=== PATIENT | male | born 1955 | race Caucasian/White ===

== ENCOUNTER 2018-02-14 09:08 | Emergency (ER) | payer BC, OTHER ==
[2018-02-14 09:13] VITALS: BP 119/87
[2018-02-14] MEDS ORDERED: Sodium Chloride 0.9% 5 ML Syringe FLUSH PRN (09:21)
--- NOTE | 2018-02-14 09:32 | EDM.PDOC ---
ED HPI GENERAL MEDICAL PROBLEM - General Chief Complaint: Abdominal Pain Stated Complaint: ABD PAIN Time Seen by Provider: 02/14/18 09:15 Source of Information: Reports: Patient History Limitations: Reports: No Limitations - History of Present Illness INITIAL COMMENTS - FREE TEXT/NARRATIVE: 62 YO WM presents to ER complaining of lower abdominal pain x 2 days. Pt reports he had eaten multiple ears of corn on the cob 3 days ago and woke yesterday with lower abdominal pain and cramping with associated diarrhea. As the day progressed pt reports he began to feel a little better and the loose stool decreased. Pt has had no appetite. Pt reports this am he woke with severe pain again. Pt reports pain is relieved with urination. Pt denies any dysuria, frequency, urgency or urethral discharge. Pt with PMH of CAD/PTCA with stent x 2 and appendectomy. 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 Lower Abdomen Pain Score (Numeric/FACES): 8 - Related Data Allergies Allergy/AdvReac Type Severity Reaction Status Date / Time No Known Drug Allergies Allergy Other Verified 02/14/18 09:13 Home Meds: Home Meds Aspirin [Abie Aspirin] 81 mg PO DAILY 12/29/14 [History] atorvaSTATin [Lipitor] 80 mg PO DAILY 12/29/14 [History] Clopidogrel Bisulfate [Clopidogrel] 75 mg PO DAILY 11/20/16 [History] Losartan [Cozaar] 25 mg PO DAILY 11/20/16 [History] Metoprolol Tartrate 50 mg PO DAILY 11/20/16 [History] Ciprofloxacin HCl [Cipro] 500 mg PO BID #20 tablet 02/14/18 [Rx] Ondansetron [Zofran ODT] 4 mg PO Q6H PRN #15 tab.dis 02/14/18 [Rx] metroNIDAZOLE [Flagyl] 500 mg PO Q6HR #40 tablet 02/14/18 [Rx] traMADol HCl [Ultram] 50 mg PO Q6HR PRN #15 tablet 02/14/18 [Rx] Past Medical History Cardiovascular History: Reports: [place] - Past Surgical History Other Cardiovascular Surgeries/Procedures: angiogram Social & Family History - Living Situation & Occupation Occupation: Employed ED ROS GENERAL - Review of Systems Review Of Systems: See Below Constitutional: Reports: No Symptoms HEENT: Reports: No Symptoms Respiratory: Reports: No Symptoms Cardiovascular: Reports: No Symptoms Endocrine: Reports: No Symptoms GI/Abdominal: Reports: Abdominal Pain, Diarrhea, Decreased Appetite, Distension , Nausea. Denies: Black Stool, Bloody Stool, Hematemesis, Hematochezia, Melena , Vomiting : Reports: No Symptoms Musculoskeletal: Reports: No Symptoms Skin: Reports: No Symptoms Neurological: Reports: No Symptoms Psychiatric: Reports: No Symptoms Hematologic/Lymphatic: Reports: No Symptoms Immunologic: Reports: No Symptoms ED EXAM, GI/ABD - Physical Exam Exam: See Below Exam Limited By: No Limitations General Appearance: Alert, WD/WN, No Apparent Distress Head: Atraumatic, Normocephalic Neck: Normal Inspection, Supple, Non-Tender, Full Range of Motion Respiratory/Chest: No Respiratory Distress, Lungs Clear, Normal Breath Sounds, No Accessory Muscle Use, Chest Non-Tender Cardiovascular: Normal Peripheral Pulses, Regular Rate, Rhythm, No Edema, No Gallop, No JVD, No Murmur, No Rub GI/Abdominal Exam: Normal Bowel Sounds, Soft, No Organomegaly, No Distention, No Abnormal Bruit, No Mass, Pelvis Stable, Tender (suprapubic/RLQ) Back Exam: Normal Inspection, Full Range of Motion, NT Extremities: Normal Inspection, Normal Range of Motion, Non-Tender, Normal Capillary Refill, No Pedal Edema Neurological: Alert, Oriented, CN II-XII Intact, Normal Cognition, Normal Gait, Normal Reflexes, No Motor/Sensory Deficits Psychiatric: Normal Affect, Normal Mood Skin Exam: Warm, Dry, Intact, Normal Color, No Rash Lymphatic: No Adenopathy Course - Vital Signs Last Recorded V/S: Last Vital Signs Temp 36.8 C 02/14/18 09:09 Pulse 88 02/14/18 09:09 Resp 20 02/14/18 09:09 BP 119/87 02/14/18 09:09 Pulse Ox 98 02/14/18 09:09 - Orders/Labs/Meds Orders: Active Orders 24 hr Category Date Time Status Peripheral IV Care [RC] . DIRECTED Care 02/14/18 09:22 Active Abdomen Pelvis w Cont [CT] Stat Exams 02/14/18 09:32 Taken UA W/MICROSCOPIC [URIN] Stat Lab 02/14/18 09:21 Ordered Ciprofloxacin in D5W [Cipro in D5W 400 MG/200 ML] 400 Med 02/14/18 11:15 Ordered mg Premix Bag 1 bag IV ONETIME HYDROmorphone [Dilaudid] Med 02/14/18 11:15 Once 1 mg IVPUSH ONETIME ONE Ondansetron [Zofran] Med 02/14/18 11:15 Once 4 mg IVPUSH ONETIME ONE Sodium Chloride 0.9% [Normal Saline] Med 02/14/18 10:30 Active 50 ml FLUSH ASDIRECTED Sodium Chloride 0.9% [Syrex Flush] Med 02/14/18 09:21 Active 5 ml FLUSH Q8HR PRN metroNIDAZOLE/Normal Saline [Flagyl 500 MG in NS 100 ML Med 02/14/18 11:15 Ordered ] 500 mg Premix Bag 1 bag IV ONETIME Peripheral IV Insertion Adult [OM.PC] Routine Oth 02/14/18 09:21 Ordered Medication Orders Sodium Chloride (Syrex Flush) 5 ml FLUSH Q8HR PRN PRN Reason: Keep Vein Open Sodium Chloride (Normal Saline) 50 ml FLUSH ASDIRECTED FAVIAN Last Admin: 02/14/18 10:56 Dose: 50 ml Labs: Laboratory Tests 02/14/18 02/14/18 02/14/18 Range/Units 09:21 09:21 09:50 WBC 7.0 (5.0-10.0) 10^3/uL RBC 5.10 (4.50-6.00) 10^6/uL Hgb 15.2 (13.0-17.0) g/dL Hct 44.1 (40.0-52.0) % MCV 86.5 (82.0-92.0) fL MCH 29.8 (27.0-31.0) pg MCHC 34.5 (32.0-36.0) g/dL RDW 13.4 (11.5-14.5) % Plt Count 168 (150-400) 10^3/uL MPV 9.5 (7.4-10.4) fL Immature Gran % (Auto) 0.1 (0.0-5.0) % Neut % (Auto) 72.7 H (50.0-70.0) % Lymph % (Auto) 14.6 L (20.0-40.0) % [place] % (Auto) 10.0 H (2.0-8.0) % Eos % (Auto) 1.9 (1.0-3.0) % Baso % (Auto) 0.7 (0.0-1.0) % Immature Gran # (Auto) 0.01 (0.00-0.50) 10^3/uL Neut # (Auto) 5.10 (2.50-7.00) 10^3/uL Lymph # (Auto) 1.02 (1.00-4.00) 10^3/uL [place] # (Auto) 0.70 (0.10-0.80) 10^3/uL Eos # (Auto) 0.13 (0.10-0.30) 10^3/uL Baso # (Auto) 0.05 (0.00-0.10) 10^3/uL Sodium 138 (136-145) mmol/L Potassium 4.3 (3.3-5.3) mmol/L Chloride 102 (98-115) mmol/L Carbon Dioxide 27.6 (21.0-32.0) mmol/L Anion Gap 12.7 (5-15) mmol/L BUN 10 (6-25) mg/dL Creatinine 0.99 (0.51-1.17) mg/dL Est Cr Clr Drug Dosing 76.77 mL/min Estimated GFR (MDRD) > 60 mL/min Glucose 100 mg/dL Calcium 9.0 (8.7-10.3) mg/dL Total Bilirubin 1.5 H (0.2-1.0) mg/dL AST 16 (15-37) U/L ALT 29 (12-78) U/L Alkaline Phosphatase 141 H (46-116) IU/L Total Protein 6.5 (6.4-8.2) g/dL Albumin 3.55 (3.00-4.80) g/dL Lipase 113 (73-393) U/L Specimen Type Urinvoid Urine Color Yellow (YELLOW) Urine Appearance Clear (CLEAR) Urine pH 5.0 (5.0-9.0) Ur Specific [place] 1.020 (1.005-1.030) Urine Protein 100 H (NEGATIVE) mg/dL Urine Glucose (UA) Negative (NEGATIVE) mg/dL Urine Ketones Negative (NEGATIVE) mg/dL Urine Occult Blood Negative (NEGATIVE) Urine Nitrite Negative (NEGATIVE) Urine Bilirubin Negative (NEGATIVE) Urine Urobilinogen 0.2 (0.2-1.0) E.U./dL Ur Leukocyte Esterase Negative (NEGATIVE) Urine RBC Not seen /HPF Urine WBC 0-5 /HPF Ur Epithelial Cells Rare /LPF Urine Bacteria Rare (NONE TO FEW) /HPF Urine Mucus Occasional H (NEGATIVE) /LPF Meds: Medications Generic Name Dose Route Start Last Admin Trade Name Freq PRN Reason Stop Dose Admin Sodium Chloride 5 ml 02/14/18 09:21 Syrex Flush FLUSH Q8HR PRN Keep Vein Open Sodium Chloride 50 ml 02/14/18 10:30 02/14/18 10:56 Normal Saline FLUSH 50 ml ASDIRECTED FAVIAN Administration Discontinued Medications Generic Name Dose Route Start Last Admin Trade Name Freq PRN Reason Stop Dose Admin Sodium Chloride 1,000 mls @ 999 mls/hr 02/14/18 09:32 02/14/18 09:50 Normal Saline IV 02/14/18 10:32 999 mls/hr .BOLUS ONE Administration Iopamidol 100 ml 02/14/18 10:26 02/14/18 10:56 Isovue-300 (61%) IVPUSH 02/14/18 10:27 100 ml ONETIME ONE Administration Ondansetron HCl 4 mg 02/14/18 09:21 02/14/18 09:50 Zofran IVPUSH 02/14/18 09:22 4 mg ONETIME ONE Administration - Radiology Interpretation Free Text/Narrative:: CT abd/pelvis- sigmoid diverticulitis without abscess Departure - Departure Time of Disposition: 11:22 Disposition: Home, Self-Care 01 Condition: Good Clinical Impression: Diverticulitis large intestine w/o perforation or abscess w/o bleeding - Discharge Information Prescriptions: metroNIDAZOLE [Flagyl] 500 mg PO Q6HR #40 tablet traMADol HCl [Ultram] 50 mg PO Q6HR PRN #15 tablet PRN Reason: Pain Ciprofloxacin HCl [Cipro] 500 mg PO BID #20 tablet Ondansetron [Zofran ODT] 4 mg PO Q6H PRN #15 tab.dis PRN Reason: Vomiting Instructions: Diverticulitis Referrals: Laurita Phan PA-C [Primary Care Provider] - Forms: ED Department Discharge - My Orders Last 24 Hours: My Active Orders 02/14/18 09:21 UA W/MICROSCOPIC [URIN] Stat Sodium Chloride 0.9% [Syrex Flush] 5 ml FLUSH Q8HR PRN Peripheral IV Insertion Adult [OM.PC] Routine 02/14/18 09:22 Peripheral IV Care [RC] . DIRECTED 02/14/18 09:32 Abdomen Pelvis w Cont [CT] Stat 02/14/18 10:30 Sodium Chloride 0.9% [Normal Saline] 50 ml FLUSH ASDIRECTED 02/14/18 11:15 Ciprofloxacin in D5W [Cipro in D5W 400 MG/200 ML] 400 mg Premix Bag 1 bag IV ONETIME HYDROmorphone [Dilaudid] 1 mg IVPUSH ONETIME ONE Ondansetron [Zofran] 4 mg IVPUSH ONETIME ONE metroNIDAZOLE/Normal Saline [Flagyl 500 MG in NS 100 ML] 500 mg Premix Bag 1 bag IV ONETIME - Assessment/Plan Last 24 Hours: My Active Orders 02/14/18 09:21 UA W/MICROSCOPIC [URIN] Stat Sodium Chloride 0.9% [Syrex Flush] 5 ml FLUSH Q8HR PRN Peripheral IV Insertion Adult [OM.PC] Routine 02/14/18 09:22 Peripheral IV Care [] . DIRECTED 02/14/18 09:32 Abdomen Pelvis w Cont [CT] Stat 02/14/18 10:30 Sodium Chloride 0.9% [Normal Saline] 50 ml FLUSH ASDIRECTED 02/14/18 11:15 Ciprofloxacin in D5W [Cipro in D5W 400 MG/200 ML] 400 mg Premix Bag 1 bag IV ONETIME HYDROmorphone [Dilaudid] 1 mg IVPUSH ONETIME ONE Ondansetron [Zofran] 4 mg IVPUSH ONETIME ONE metroNIDAZOLE/Normal Saline [Flagyl 500 MG in NS 100 ML] 500 mg Premix Bag 1 bag IV ONETIME Assessment:: 1. Sigmoid diverticulitis Plan: 1. Discharge home 2. Flagyl 500mg Q6 x 10 days 3. Cipro 500mg BID x 10days 4. Zofran 4mg ODT TID PRN nausea 5. Ultram 50mg PO Q4-6 PRN pain #15 6. follow up in clinic for recheck next 48 hours or return to ER for worsening symptoms
[2018-02-14] MEDS: Sodium Chloride 0.9% 1,000 ML IV ONE (09:50)
[2018-02-14] MEDS: Ondansetron 4 MG/2 ML SDV IVPUSH ONE ×2 (09:50→11:34)
[2018-02-14 10:30] LABS: ANION GAP 12.7 mmol/L (5-15); CHLORIDE,CL 102 mmol/L (98-115); SODIUM,NA 138 mmol/L (136-145)
[2018-02-14] MEDS: Sodium Chloride 0.9% 50 ML SDV FLUSH SCH (10:56)
[2018-02-14] MEDS: Iopamidol 612 MG/ML 100 ML Bottle IVPUSH ONE (10:56)
[2018-02-14] MEDS: HYDROmorphone 1 MG/ML Syringe IVPUSH ONE (11:33)
[2018-02-14] MEDS: Ciprofloxacin in D5W 400 MG in Premix Bag 1 BAG IV ONE ×2 (11:34)
[2018-02-14] MEDS: metroNIDAZOLE 500 MG Tab PO ONE (11:34)
[2018-02-14] MEDS: metroNIDAZOLE/Normal Saline 500 MG in Premix Bag 1 BAG IV ONE (11:34)
[2018-02-14] MEDS: Ciprofloxacin 500 MG Tab PO ONE (11:34)
== END 2018-02-14 11:45 | disposition home or self-care (01) ==
LOC: KA.ED 09:08
DX: K57.92 Diverticulitis of intestine, part unspecified, without perforation or abscess without bleeding (principal); I25.2 Old myocardial infarction; Z79.899 Other long term (current) drug therapy
CPT/HCPCS: 36415; 74177; 80053; 81001; 83690; 85025; 96361; 96374; 96375; 96376; 99284; A9270-GY; J1170; J2405; J7030; Q9967

== ENCOUNTER 2018-02-16 10:09 | Observation (INO) | payer BC ==
[2018-02-16] MEDS ORDERED: Ondansetron 4 MG/2 ML SDV IV PRN (10:18)
[2018-02-16] MEDS ORDERED: traMADol 50 MG Tab PO PRN ×2 (10:24→11:00)
[2018-02-16] MEDS: Sodium Chloride 0.9% 1,000 ML IV SCH ×2 (11:15→21:36)
[2018-02-16] MEDS: Ciprofloxacin in D5W 200 ML IV SCH ×2 (11:16→21:38)
[2018-02-16 11:31] LABS: CHLORIDE,CL 101 mmol/L (98-115); SODIUM,NA 139 mmol/L (136-145)
[2018-02-16] MEDS ORDERED: Sodium Chloride 0.9% 50 ML SDV FLUSH SCH (13:00)
[2018-02-16] MEDS: metroNIDAZOLE/Normal Saline 100 ML IV SCH ×2 (14:19→22:43)
[2018-02-16] MEDS: Iopamidol 612 MG/ML 75 ML Bottle IV ONE ×2 (15:42→17:03)
[2018-02-16] MEDS ORDERED: Enoxaparin 100 MG/1 ML Syringe SUBCUT SCH (16:00)
--- NOTE | 2018-02-16 17:16 | PN ---
02/16/2018 PATIENT NAME: JORGE LUIS COOK ADMIT/PROGRESS NOTE ADDENDUM: The patient had a CT of his abdomen which showed diverticulitis of the sigmoid colon without abscess. It also made note of a venous mesenteric thrombus. We will start him on Lovenox 1 mg/kg b.i.d. It corresponds with 100 mg subcutaneously b.i.d. This order was entered into his chart. It also was brought to my attention that the patient has become hypotensive with a blood pressure of 86/55 and a heart rate of 50. We will give him a bolus of normal saline at 250 mL bolus times one and then continue IV fluids at 125 per hour. Lactic acid was attempted to be added on to his lab work; however, he will have to be redrawn. We will continue to monitor closely. /[id number]/MODL
[2018-02-17] MEDS: metroNIDAZOLE/Normal Saline 100 ML IV SCH ×2 (05:23→13:00)
[2018-02-17] MEDS ORDERED: Enoxaparin 100 MG/1 ML Syringe SUBCUT SCH (06:00)
[2018-02-17] MEDS: Ciprofloxacin in D5W 200 ML IV SCH (08:33)
[2018-02-17 08:47] VITALS: BP 109/62
[2018-02-17] MEDS ORDERED: atorvaSTATin 40 MG Tab PO SCH (09:00)
[2018-02-17] MEDS ORDERED: Aspirin 81 MG Tab.EC PO SCH (09:00)
[2018-02-17] MEDS ORDERED: Losartan 25 MG Tab PO SCH (09:00)
[2018-02-17] MEDS ORDERED: Metoprolol Succinate 50 MG Tab.ER PO SCH (09:00)
[2018-02-17] MEDS: Sodium Chloride 0.9% 1,000 ML IV SCH (09:41)
--- NOTE | 2018-02-17 09:45 | PCM.PN ---
- General Info Date of Service: 02/17/18 Admission Dx/Problem (Free Text): Diverticulitis - Review of Systems Systems Review Comment:: Kendell is seen today on inpatient rounds. He was admitted on 02/16/18 with diverticulitis, failure of outpatient therapy. He was initiall seen in the ER on 02/14/[address] showed sigmoid diverticulitis without abscess. He was started on metronidazole 500 mg PO q 6 hours and ciprofloxacin 500 mg PO BID. He declined clinically with fatigue and worsening abdominal pain and so was admitted for IV antibiotics. He states this morning he is feeling better. Pain is down to a 2. He has some gas and loose stool. Appetite has been OK. He notes his BP was low overnight with SBP in the 80's. He is currently 109 systolic and the nurse is wondering about giving him his BP meds. 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 - Patient Data Vitals - Most Recent: Last Vital Signs Temp 98.9 F 02/17/18 06:27 Pulse 68 02/17/18 08:47 Resp 18 02/17/18 06:27 BP 109/62 02/17/18 08:47 Pulse Ox 94 L 02/17/18 06:27 Weight - Most Recent: 228 lb 12.8 oz I&O - Last 24 Hours: Intake & Output 02/16/18 02/17/18 02/17/18 22:59 06:59 14:59 Intake Total 1715 1073 Output Total 1300 1200 Balance 415 -127 Lab Results Last 24 Hours: Laboratory Results - last 24 hr 02/16/18 02/16/18 02/16/18 Range/Units 11:00 11:00 11:00 WBC 5.8 (5.0-10.0) 10^3/uL RBC 5.26 (4.50-6.00) 10^6/uL Hgb 15.6 (13.0-17.0) g/dL Hct 45.4 (40.0-52.0) % MCV 86.3 (82.0-92.0) fL MCH 29.7 (27.0-31.0) pg MCHC 34.4 (32.0-36.0) g/dL RDW 13.0 (11.5-14.5) % Plt Count 202 (150-400) 10^3/uL MPV 9.6 (7.4-10.4) fL Immature Gran % (Auto) 0.2 (0.0-5.0) % Neut % (Auto) 68.9 (50.0-70.0) % Lymph % (Auto) 16.5 L (20.0-40.0) % [place] % (Auto) 8.2 H (2.0-8.0) % Eos % (Auto) 5.0 H (1.0-3.0) % Baso % (Auto) 1.2 H (0.0-1.0) % Immature Gran # (Auto) 0.01 (0.00-0.50) 10^3/uL Neut # (Auto) 3.96 (2.50-7.00) 10^3/uL Lymph # (Auto) 0.95 L (1.00-4.00) 10^3/uL [place] # (Auto) 0.47 (0.10-0.80) 10^3/uL Eos # (Auto) 0.29 (0.10-0.30) 10^3/uL Baso # (Auto) 0.07 (0.00-0.10) 10^3/uL Sodium 139 (136-145) mmol/L Potassium 4.3 (3.3-5.3) mmol/L Chloride 101 (98-115) mmol/L Carbon Dioxide 29.3 (21.0-32.0) mmol/L Anion Gap 13.0 (5-15) mmol/L BUN 11 (6-25) mg/dL Creatinine 1.02 (0.51-1.17) mg/dL Est Cr Clr Drug Dosing 74.51 mL/min Estimated GFR (MDRD) > 60 mL/min Glucose 93 mg/dL Lactic Acid 1.4 (0.4-2.0) mmol/L Calcium 9.3 (8.7-10.3) mg/dL Total Bilirubin 1.3 H (0.2-1.0) mg/dL AST 19 (15-37) U/L ALT 27 (12-78) U/L Alkaline Phosphatase 125 H (46-116) IU/L Total Protein 6.7 (6.4-8.2) g/dL Albumin 3.56 (3.00-4.80) g/dL Med Orders - Current: Current Medications Aspirin (Halfprin) 81 mg PO DAILY [facility] Last Admin: 02/17/18 08:33 Dose: 81 mg Atorvastatin Calcium (Lipitor) 80 mg PO DAILY [facility] Last Admin: 02/17/18 08:33 Dose: 80 mg Enoxaparin Sodium (Lovenox) 100 mg SUBCUT BID@0600,1800 [facility] Last Admin: 02/17/18 05:24 Dose: 100 mg Sodium Chloride (Normal Saline) 1,000 mls @ 125 mls/hr IV ASDIRECTED [facility] Last Admin: 02/16/18 21:36 Dose: 125 mls/hr Ciprofloxacin/Dextrose (Cipro In D5w 400 Mg/200 Ml) 200 mls @ 200 mls/hr IV BID [facility] Last Admin: 02/17/18 08:33 Dose: 200 mls/hr Metronidazole (Flagyl 500 Mg In Ns 100 Ml) 100 mls @ 100 mls/hr IV Q8HR [facility] Last Admin: 02/17/18 05:23 Dose: 100 mls/hr Losartan Potassium (Cozaar) 25 mg PO DAILY [facility] Last Admin: 02/17/18 08:46 Dose: Not Given Metoprolol Succinate (Toprol Xl) 50 mg PO DAILY [facility] Last Admin: 02/17/18 08:47 Dose: Not Given Ondansetron HCl (Zofran) 4 mg IV Q6H PRN PRN Reason: Nausea/Vomiting Last Admin: 02/16/18 21:29 Dose: 4 mg Tramadol HCl (Ultram) 50 mg PO Q4HR PRN PRN Reason: Abdominal Pain Discontinued Medications Enoxaparin Sodium (Lovenox) 100 mg SUBCUT Q12H [facility] Last Admin: 02/16/18 16:19 Dose: 100 mg Iopamidol (Isovue-300 (61%)) 75 ml IV ONETIME ONE Stop: 02/16/18 12:59 Last Admin: 02/16/18 17:03 Dose: 75 ml Sodium Chloride (Normal Saline) 50 ml FLUSH ASDIRECTED [facility] Stop: 02/16/18 14:00 Last Admin: 02/16/18 17:03 Dose: 50 ml - Exam General: Alert, Oriented, Cooperative, No Acute Distress Lungs: Clear to Auscultation, Normal Respiratory Effort Cardiovascular: Regular Rate, Regular Rhythm, No Murmurs GI/Abdominal Exam: Normal Bowel Sounds - Problem List & Annotations (1) Superior mesenteric vein thrombosis SNOMED Code(s): 473567236 Code(s): I81 - PORTAL VEIN THROMBOSIS Status: Acute Current Visit: Yes (2) Hypertension SNOMED Code(s): 72947501 Code(s): I10 - ESSENTIAL (PRIMARY) HYPERTENSION Status: Acute Current Visit: Yes (3) Diverticulitis large intestine w/o perforation or abscess w/o bleeding SNOMED Code(s): 8819869 Code(s): K57.32 - DVTRCLI OF LG INT W/O PERFORATION OR ABSCESS W/O BLEEDING Status: Acute Current Visit: No - Problem List Review Problem List Initiated/Reviewed/Updated: Yes - Assessment Assessment:: Diverticulitis Superior mesenteric vein thrombosis HTN Hyperlipidemia - Plan Plan:: Diverticulitis. Continue with ciprofloxacin 400 mg IV BID and metronidazole 500 mg IV TID. Superior mesenteric vein thrombosis. Continue enoxaparin. Will discharge on Xarelto. HTN. Hold losartan and metoprolol this morning. Hyperlipidemia. Continue atorvastatin. Anticipate discharge possibly tomorrow morning continuing on outpatient antibiotics.
--- NOTE | 2018-02-17 09:51 | PN ---
02/16/2018 PATIENT NAME: JORGE LUIS COOK BRIEF ADMIT/PROGRESS NOTE Please see clinic note from 02/15, which was addended to be used as the admission H and P. SUBJECTIVE: This is a 62-year-old male who was originally seen in the emergency room on 02/14/2018 with diverticulitis. He was treated as an outpatient with Flagyl as well as Cipro. He was sent home with tramadol for pain and Zofran for nausea. Labs were unremarkable in the emergency room. CT did confirm diverticulitis without abscess. The patient followed up with me in the clinic on 02/15/2018 and had improved marginally, however, did not feel all that much better than he did the day before. He was still quite tender in the left lower quadrant. We did discuss hospitalization at that time; however, the patient declined. I told him to be sure to let me know if he did not feel that he was improving. He called me this morning stating that he still feels clammy and is in an incredible amount of pain. He states that one of his dogs, which is a small Chihuahua, jumped up onto his stomach and caused an intense amount of pain. He was agreeable to hospitalization today and was admitted directly. LABORATORY DATA: Lab data from today shows a normal white count of 5800. There is no shift at this time. Chemistry panel was normal with the exception of a high total bilirubin of 1.3 and a high alkaline phosphatase of 125, not clinically significant. The remainder of the chemistry panel was normal. He did have a UA in the emergency room on 02/14/2018, which was normal. I did repeat a CAT scan which showed no abscess. There is persistent inflammatory changes of the sigmoid colon consistent with diverticulitis. There was a question of a superior mesenteric venous thrombus with followup considered. This was not seen on the initial CT scan. EXAMINATION: GENERAL: The patient is awake, sitting up in bed, alert, and in no acute distress. VITAL SIGNS: Temperature is 97.1, pulse 60, respirations 16, blood pressure 108/70. O2 saturation is 100% on room air. SKIN: Warm and dry to touch. HEART: Normal. LUNGS: Normal. ABDOMEN: He does have some tenderness with palpation of the left lower quadrant. There is no guarding, rigidity, or rebound tenderness. Bowel sounds are present in all 4 quadrants. EXTREMITIES: There is no pedal edema. IMPRESSION: Diverticulitis, failure of outpatient treatment. The patient was admitted. He will be treated with intravenous fluids as well as intravenous Flagyl and Cipro. He will continue on tramadol for discomfort and Zofran for nausea. I have discussed the patient's admission with Dr. Anne Moya who will be seeing the patient in the morning. /[id number]/MODL
--- NOTE | 2018-02-17 13:58 | PCM.DCSUM1 ---
Discharge Summary - Hospital Course Free Text/Narrative:: Kendell is being discharged today. He was admitted on 02/16/18 with diverticulitis , failure of outpatient therapy. Discharge date of 02/17/18 He was initially seen in the ER on 02/14/[address] showed sigmoid diverticulitis without abscess. He was started on metronidazole 500 mg PO q 6 hours and ciprofloxacin 500 mg PO BID. He declined clinically with fatigue and worsening abdominal pain and so was admitted for IV antibiotics on 02/16/18. He states this morning he is feeling better. Pain is down to a 2. He has some gas and loose stool. Appetite has been OK. He has improved clinically rather rapidly and is requesting to to [facility]. 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 He will be discharged on Xarelto 15 mg PO BID x 21 days then 20 mg PO daily, recommend repeat CT on 3 months to confirm resolution. He will continue his outpatient prescriptions for ciprofloxacin and metronidazole. Diagnosis: Stroke: No Modified [place] Scale: No Signif.Disability Despite Sympt.Able to Carry Out Usual Act./Duties Modified [place] Scale Score: 1 - Discharge Data Discharge Date: 02/17/18 Discharge Disposition: Home, Self-Care 01 Condition: Good - Discharge Diagnosis/Problem(s) (1) Superior mesenteric vein thrombosis SNOMED Code(s): 951950739 ICD Code: I81 - PORTAL VEIN THROMBOSIS Status: Acute Current Visit: Yes (2) Hypertension SNOMED Code(s): 92275418 ICD Code: I10 - ESSENTIAL (PRIMARY) HYPERTENSION Status: Acute Current Visit: Yes (3) Diverticulitis large intestine w/o perforation or abscess w/o bleeding SNOMED Code(s): 7872775 ICD Code: K57.32 - DVTRCLI OF LG INT W/O PERFORATION OR ABSCESS W/O BLEEDING Status: Acute Current Visit: No - Patient Instructions Diet: Regular Diet as Tolerated Activity: As Tolerated Driving: May Drive Today Notify Provider of: Increased Pain, Nausea and/or Vomiting - Discharge Plan *PRESCRIPTION DRUG MONITORING PROGRAM REVIEWED*: Not Applicable *COPY OF PRESCRIPTION DRUG MONITORING REPORT IN PATIENT KENNETH: Not Applicable Home Medications: Home Meds atorvaSTATin [Lipitor] 80 mg PO DAILY 12/29/14 [History] Clopidogrel Bisulfate [Clopidogrel] 75 mg PO DAILY 11/20/16 [History] Losartan [Cozaar] 25 mg PO DAILY 11/20/16 [History] Ciprofloxacin HCl [Cipro] 500 mg PO BID #20 tablet 02/14/18 [Rx] Ondansetron [Zofran ODT] 4 mg PO Q6H PRN #15 tab.dis 02/14/18 [Rx] metroNIDAZOLE [Flagyl] 500 mg PO Q6HR #40 tablet 02/14/18 [Rx] traMADol HCl [Ultram] 50 mg PO Q6HR PRN #15 tablet 02/14/18 [Rx] Aspirin [Halfprin] 81 mg PO DAILY 02/16/18 [History] Metoprolol Succinate [Toprol Xl] 50 mg PO DAILY 02/16/18 [History] Nitroglycerin [Nitrostat] 0.4 mg SL Q5M PRN 02/16/18 [History] - General Info Date of Service: 02/17/18 Admission Dx/Problem (Free Text: Diverticulitis - Patient Data Vitals - Most Recent: Last Vital Signs Temp 98.9 F 02/17/18 06:27 Pulse 68 02/17/18 08:47 Resp 18 02/17/18 06:27 BP 109/62 02/17/18 08:47 Pulse Ox 94 L 02/17/18 06:27 Weight - Most Recent: 228 lb 12.8 oz I&O - Last 24 hours: Intake & Output 02/16/18 02/17/18 02/17/18 22:59 06:59 14:59 Intake Total 1715 1073 Output Total 1300 1200 Balance 415 -127 Lab Results - Last 24 hrs: Laboratory Results - last 24 hr 02/16/18 Range/Units 11:00 Lactic Acid 1.4 (0.4-2.0) mmol/L Med Orders - Current: Current Medications Aspirin (Halfprin) 81 mg PO DAILY [facility] Last Admin: 02/17/18 08:33 Dose: 81 mg Atorvastatin Calcium (Lipitor) 80 mg PO DAILY [facility] Last Admin: 02/17/18 08:33 Dose: 80 mg Enoxaparin Sodium (Lovenox) 100 mg SUBCUT BID@0600,1800 [facility] Last Admin: 02/17/18 05:24 Dose: 100 mg Sodium Chloride (Normal Saline) 1,000 mls @ 125 mls/hr IV ASDIRECTED [facility] Last Admin: 02/17/18 09:41 Dose: 125 mls/hr Ciprofloxacin/Dextrose (Cipro In D5w 400 Mg/200 Ml) 200 mls @ 200 mls/hr IV BID [facility] Last Admin: 02/17/18 08:33 Dose: 200 mls/hr Metronidazole (Flagyl 500 Mg In Ns 100 Ml) 100 mls @ 100 mls/hr IV Q8HR [facility] Last Admin: 02/17/18 13:00 Dose: 100 mls/hr Losartan Potassium (Cozaar) 25 mg PO DAILY [facility] Last Admin: 02/17/18 08:46 Dose: Not Given Metoprolol Succinate (Toprol Xl) 50 mg PO DAILY [facility] Last Admin: 02/17/18 08:47 Dose: Not Given Ondansetron HCl (Zofran) 4 mg IV Q6H PRN PRN Reason: Nausea/Vomiting Last Admin: 02/16/18 21:29 Dose: 4 mg Tramadol HCl (Ultram) 50 mg PO Q4HR PRN PRN Reason: Abdominal Pain Discontinued Medications Enoxaparin Sodium (Lovenox) 100 mg SUBCUT Q12H [facility] Last Admin: 02/16/18 16:19 Dose: 100 mg Iopamidol (Isovue-300 (61%)) 75 ml IV ONETIME ONE Stop: 02/16/18 12:59 Last Admin: 02/16/18 17:03 Dose: 75 ml Sodium Chloride (Normal Saline) 50 ml FLUSH ASDIRECTED [facility] Stop: 02/16/18 14:00 Last Admin: 02/16/18 17:03 Dose: 50 ml - Exam General: Reports: Alert, Oriented, Cooperative, No Acute Distress Lungs: Reports: Clear to Auscultation, Normal Respiratory Effort Cardiovascular: Reports: Regular Rate, Regular Rhythm, No Murmurs GI/Abdominal Exam: Normal Bowel Sounds Extremities: No Pedal Edema
== END 2018-02-17 15:00 | disposition home or self-care (01) ==
LOC: KA.MS 10:09
DX: K57.32 Diverticulitis of large intestine without perforation or abscess without bleeding (principal); I81 Portal vein thrombosis; I10 Essential (primary) hypertension; E78.5 Hyperlipidemia, unspecified; Z79.82 Long term (current) use of aspirin; Z79.01 Long term (current) use of anticoagulants; Z79.899 Other long term (current) drug therapy
CPT/HCPCS: 36415; 74177; 80053; 83605; 85025; 96361; 96365; 96366; 96367; 96372; 96375; A9270; G0378; J0744; J1650; J2405; J3490; J7030; Q9967

== ENCOUNTER 2020-12-23 16:46 | Emergency (ER) | payer BC, OTHER ==
[2020-12-23] MEDS ORDERED: Sodium Chloride 0.9% 1,000 ML IV ONE (17:28)
[2020-12-23] MEDS ORDERED: Sodium Chloride 0.9% 10 ML Syringe FLUSH PRN (17:28)
[2020-12-23] MEDS ORDERED: Ondansetron 4 MG Tab.DIS PO ONE (17:41)
--- NOTE | 2020-12-23 17:53 | EDM.PDOC ---
ED HPI GENERAL MEDICAL PROBLEM - General Chief Complaint: General Stated Complaint: HEAT EXHAUSTION Time Seen by Provider: 12/23/20 17:29 Source of Information: Reports: Patient History Limitations: Reports: No Limitations - History of Present Illness INITIAL COMMENTS - FREE TEXT/NARRATIVE: Patient presents with symptoms of heat exhaustion he thinks. He has been out in the sun working all day and not drinking much water. He started feeling dizzy, lightheaded, nauseous, and short of breath. He went and sat in the pickup with A/C on and felt better but when he went back to work the symptoms came back so he came to ER. He had been sweating a lot but he became more concerned when he stopped sweating. He denies pain in neck, chest, abdomen. He had a DE in 2014 but says this doesn't feel anything like that. - Related Data Allergies Allergy/AdvReac Type Severity Reaction Status Date / Time No Known Drug Allergies Allergy Other Verified 12/23/20 17:04 Home Meds: Home Meds atorvaSTATin [Lipitor] 80 mg PO DAILY 12/29/14 [History] Losartan [Cozaar] 25 mg PO DAILY 11/20/16 [History] Aspirin [Halfprin] 81 mg PO DAILY 02/16/18 [History] Metoprolol Succinate [Toprol Xl] 50 mg PO DAILY 02/16/18 [History] Nitroglycerin [Nitrostat] 0.4 mg SL Q5M PRN 02/16/18 [History] Past Medical History HEENT History: Reports: Impaired Vision Cardiovascular History: Reports: Blood Clots/VTE/DVT, DE, Stents, Other (See Below) Other Cardiovascular History: blood clot in colon 2018 Respiratory History: Reports: None Gastrointestinal History: Reports: GERD, Other (See Below) Other Gastrointestinal History: diverticulitis Genitourinary History: Reports: None Musculoskeletal History: Reports: Fracture, Gout, Other (See Below) Other Musculoskeletal History: left wrist fx. Neurological History: Reports: None Psychiatric History: Reports: None Endocrine/Metabolic History: Reports: Obesity/BMI 30+ Hematologic History: Reports: None Immunologic History: Reports: None Oncologic (Cancer) History: Reports: None Dermatologic History: Reports: None - Infectious Disease History Infectious Disease History: Reports: None - Past Surgical History HEENT Surgical History: Reports: None Cardiovascular Surgical History: Reports: Coronary Artery Stent Other Cardiovascular Surgeries/Procedures: angiogram. 1 stent placed for 2 blockages in 2015 GI Surgical History: Reports: Appendectomy, Colonoscopy, EGD Endocrine Surgical History: Reports: None Musculoskeletal Surgical History: Reports: Other (See Below) Other Musculoskeletal Surgeries/Procedures:: Hand injury Social & Family History - Family History Family Medical History: No Pertinent Family History Cardiac: Reports: DE Other Cardiac Family History: dad - Tobacco Use Tobacco Use Status *Q: Former Tobacco User Used Tobacco, but Quit: Yes Month/Year Tobacco Last Used: 1990 - Caffeine Use Caffeine Use: Reports: Coffee - Recreational Drug Use Recreational Drug Use: No - Living Situation & Occupation Occupation: Employed ED ROS GENERAL - Review of Systems Review Of Systems: See Below Constitutional: Reports: Weakness (general). Denies: Fever, Chills HEENT: Reports: No Symptoms Respiratory: Reports: Shortness of Breath Cardiovascular: Reports: Lightheadedness. Denies: Chest Pain, Syncope GI/Abdominal: Reports: Nausea. Denies: Abdominal Pain, Diarrhea, Vomiting : Reports: Other (not much output today) Musculoskeletal: Denies: Neck Pain, Shoulder Pain, Arm Pain, Back Pain, Hand Pain Skin: Reports: Diaphoresis (in the heat/sun). Denies: Cyanosis, Jaundice, Mottled, Pallor Neurological: Reports: Dizziness. Denies: Confusion, Headache, Seizure, Syncope, Trouble Speaking, Difficulty Walking Psychiatric: Denies: Agitation, Anxiety, Confusion ED EXAM, GENERAL - Physical Exam Exam: See Below Exam Limited By: No Limitations General Appearance: Alert, WD/WN, No Apparent Distress Eye Exam: Bilateral Eye: EOMI, Normal Inspection, PERRL Ears: Normal External Exam, Hearing Grossly Normal Nose: Normal Inspection, No Blood Throat/Mouth: Normal Inspection, Normal Lips, Normal Voice, No Airway Compromise Head: Atraumatic, Normocephalic Neck: Normal Inspection, Full Range of Motion Respiratory/Chest: No Respiratory Distress, Lungs Clear, Normal Breath Sounds, No Accessory Muscle Use Cardiovascular: Normal Peripheral Pulses, Regular Rate, Rhythm GI/Abdominal: Normal Bowel Sounds, Soft, Non-Tender, No Organomegaly, No Distention Back Exam: Normal Inspection, Full Range of Motion. No: CVA Tenderness (L), CVA Tenderness (R) Extremities: Normal Inspection, Normal Range of Motion Neurological: Alert, Oriented, Normal Cognition, No Motor/Sensory Deficits Psychiatric: Normal Affect, Normal Mood Skin Exam: Warm, Dry, Intact, Normal Color, No Rash Course - Vital Signs Last Recorded V/S: Last Vital Signs Temp 97.4 F 12/23/20 16:54 Pulse 60 12/23/20 18:07 Resp 14 12/23/20 18:07 BP 145/92 H 12/23/20 18:07 Pulse Ox 99 12/23/20 18:07 - Orders/Labs/Meds Orders: Active Orders 24 hr Category Date Time Status Peripheral IV Care [RC] . DIRECTED Care 12/23/20 17:28 Active Sodium Chloride 0.9% [Saline Flush] Med 12/23/20 17:28 Active 10 ml FLUSH Q8HR PRN Peripheral IV Insertion Adult [OM.PC] Routine Oth 12/23/20 17:28 Ordered Medication Orders Sodium Chloride (Sodium Chloride 0.9% 10 Ml Syringe) 10 ml FLUSH Q8HR PRN PRN Reason: keep vein open Labs: Laboratory Tests 12/23/20 12/23/20 Range/Units 17:50 17:50 WBC 6.69 (5.00-10.00) 10^3/uL RBC 5.25 (4.50-6.00) 10^6/uL Hgb 15.3 (13.0-17.0) g/dL Hct 45.3 (40.0-52.0) % MCV 86.3 (82.0-92.0) fL MCH 29.1 (27.0-31.0) pg MCHC 33.8 (32.0-36.0) g/dL RDW 13.4 (11.5-14.5) % Plt Count 227 (150-400) 10^3/uL MPV 9.2 (7.4-10.4) fL Immature Gran % (Auto) 0.1 (0.0-5.0) % Neut % (Auto) 61.0 (50.0-70.0) % Lymph % (Auto) 25.4 (20.0-40.0) % [place] % (Auto) 8.7 H (2.0-8.0) % Eos % (Auto) 3.9 H (1.0-3.0) % Baso % (Auto) 0.9 (0.0-1.0) % Neut # (Auto) 4.08 (2.50-7.00) 10^3/uL Lymph # (Auto) 1.70 (1.00-4.00) 10^3/uL [place] # (Auto) 0.58 (0.10-0.80) 10^3/uL Eos # (Auto) 0.26 (0.10-0.30) 10^3/uL Baso # (Auto) 0.06 (0.00-0.10) 10^3/uL Immature Gran # (Auto) 0.01 (0.00-0.50) 10^3/uL Sodium 138 (136-145) mmol/L Potassium 4.5 (3.5-5.1) mmol/L Chloride 101 (98-107) mmol/L Carbon Dioxide 29.4 (21.0-32.0) mmol/L Anion Gap 12.1 (5-15) mmol/L BUN 15 (7-18) mg/dL Creatinine 1.09 (0.51-1.17) mg/dL Est Cr Clr Drug Dosing 67.11 mL/min Estimated GFR (MDRD) > 60 mL/min Glucose 85 (70-140) mg/dL Calcium 9.0 (8.7-10.3) mg/dL Meds: Medications Generic Name Dose Route Start Last Admin Trade Name Freq PRN Reason Stop Dose Admin Sodium Chloride 10 ml 12/23/20 17:28 Sodium Chloride 0.9% 10 Ml Syringe FLUSH Q8HR PRN keep vein open Discontinued Medications Generic Name Dose Route Start Last Admin Trade Name Freq PRN Reason Stop Dose Admin Sodium Chloride 1,000 mls @ 999 mls/hr 12/23/20 17:28 12/23/20 17:46 Normal Saline IV 12/23/20 18:28 999 mls/hr .BOLUS ONE Administration Ondansetron HCl 4 mg 12/23/20 17:41 12/23/20 17:45 Ondansetron 4 Mg Tab.Dis PO 12/23/20 17:42 4 mg ONETIME ONE Administration - Re-Assessments/Exams Free Text/Narrative Re-Assessment/Exam: 12/23/20 18:43 CBC and BMP are normal. Patient has drank 24 oz of water and is finishing up a liter of NS. He also had a dose of Zofran 4 mg ODT. He is feeling good now. All symptoms are gone. His arrived and wondered if this could be heart related with the shortness of breath and sweating. Patient and I had discussed this earlier and I don't feel this is cardiac etiology. Patient is feeling completely back to normal after the fluids and zofran as well as being in A/C environment out of the sun; he doesn't want testing for DE. He wonders about working again tomorrow and I advised taking tomorrow off and staying out of the heat and sun; keeping in cooled environment and resting. We also discussed that when he does go back he will need to drink lots of water (as well as one gatorade/day if he wants), watch for return of symptoms and get out of the heat and into a cooled environment right away and not wait until symptoms get bad. Departure - Departure Time of Disposition: 18:52 Disposition: Home, Self-Care 01 Condition: Good Clinical Impression: Heat exhaustion Qualifiers: Encounter type: initial encounter Qualified Code(s): T67.5XXA - Heat exhaustion, unspecified, initial encounter - Discharge Information Instructions: Heat Exhaustion, Preventing Heat Exhaustion, Adult Referrals: Laurita Phan PA-C [Primary Care Provider] - Forms: ED Department Discharge Additional Instructions: Drink lots of water if out in the heat and sun. Normally I recommend 8 cups a day but this should be increased if working in the heat. If you start to feel symptoms again, get out of the heat and sun right away and drink lots of water. If symptoms worsen or persist return to ER or your PCP office as needed. Sepsis Event Note (ED) - Evaluation Sepsis Screening Result: No Definite Risk - Focused Exam Vital Signs: Vital Signs Temp Pulse Resp BP Pulse Ox 12/23/20 18:07 60 14 145/92 H 99 12/23/20 17:00 66 22 H 135/88 97 12/23/20 16:54 97.4 F 73 14 141/85 H 97 - My Orders Last 24 Hours: My Active Orders 12/23/20 17:28 Peripheral IV Care [RC] . DIRECTED Sodium Chloride 0.9% [Saline Flush] 10 ml FLUSH Q8HR PRN Peripheral IV Insertion Adult [OM.PC] Routine - Assessment/Plan Last 24 Hours: My Active Orders 12/23/20 17:28 Peripheral IV Care [RC] . DIRECTED Sodium Chloride 0.9% [Saline Flush] 10 ml FLUSH Q8HR PRN Peripheral IV Insertion Adult [OM.PC] Routine
[2020-12-23 18:31] LABS: ANION GAP 12.1 mmol/L (5-15); CHLORIDE,CL 101 mmol/L (98-107); SODIUM,NA 138 mmol/L (136-145)
[2020-12-23 19:06] VITALS: BP 130/80; PULSE 59
== END 2020-12-23 19:20 | disposition home or self-care (01) ==
LOC: KA.ED 16:46
DX: T67.5XXA Heat exhaustion, unspecified, initial encounter (principal); I25.2 Old myocardial infarction; M10.9 Gout, unspecified; E66.9 Obesity, unspecified; Z68.36 Body mass index [BMI] 36.0-36.9, adult; Z87.891 Personal history of nicotine dependence; Z79.82 Long term (current) use of aspirin; Z79.899 Other long term (current) drug therapy
CPT/HCPCS: 80048; 85025; 99284; A9270-GY; J7030

== ENCOUNTER 2023-05-05 07:50 | Emergency (ER) | payer BC ==
[2023-05-05] MEDS ORDERED: Ondansetron 4 MG/2 ML SDV IVPUSH ONE (07:54)
[2023-05-05] MEDS ORDERED: Ketorolac 30 MG/ML SDV IVPUSH ONE (07:54)
[2023-05-05] MEDS ORDERED: Sodium Chloride 0.9% 1,000 ML IV ONE (07:54)
[2023-05-05 08:04] LABS: BASOPHILS ABSOLUTE AUTO 0.03 10^3/uL (0.00-0.10); BASOPHILS PERCENT AUTO 0.6 % (0.0-1.0); EOSINOPHILS ABSOLUTE AUTO 0.28 10^3/uL (0.10-0.30); EOSINOPHILS PERCENT AUTO 5.5 % (1.0-3.0); HEMATOCRIT 44.7 % (40.0-52.0); HEMOGLOBIN 15.3 g/dL (13.0-17.0); IMMATURE GRAN ABSOLUTE AUTO 0.02 10^3/uL (0.00-0.50); IMMATURE GRAN PERCENT AUTO 0.4 % (0.0-5.0); LYMPHOCYTES ABSOLUTE AUTO 1.29 10^3/uL (1.00-4.00); LYMPHOCYTES PERCENT AUTO 25.3 % (20.0-40.0); MEAN CORPUSCULAR HGB CONC 34.2 g/dL (32.0-36.0); MEAN CORPUSCULAR VOLUME 87.6 fL (82.0-92.0); MEAN PLATELET VOLUME 9.2 fL (7.4-10.4); MONOCYTES PERCENT AUTO 7.8 % (2.0-8.0); NEUTROPHILS ABSOLUTE AUTO 3.08 10^3/uL (2.50-7.00); NEUTROPHILS PERCENT AUTO 60.4 % (50.0-70.0); PLATELET COUNT,PLT 189 10^3/uL (150-400)
[2023-05-05 08:20] LABS: ALBUMIN 3.74 g/dL (3.40-5.00); ANION GAP 14.6 mmol/L (5-15); BILIRUBIN TOTAL 0.8 mg/dL (0.2-1.0); CALCIUM 8.3 mg/dL (8.7-10.3); CARBON DIOXIDE,CO2 26.6 mmol/L (21.0-32.0); CREATININE 1.09 mg/dL (0.51-1.17); EST CRCL DRUG DOSING (CG) 64.5 mL/min; POTASSIUM,K 4.2 mmol/L (3.5-5.1); PROTEIN TOTAL,TP 6.2 g/dL (6.4-8.2)
[2023-05-05 08:48] LABS: APPEARANCE,URINE CLEAR (CLEAR); BILIRUBIN,URINE NEGATIVE (NEGATIVE); COLOR,URINE YELLOW (YELLOW); GLUCOSE,URINE NEGATIVE (NEGATIVE); KETONES,URINE NEGATIVE (NEGATIVE); LEUKOCYTE ESTERASE,URINE NEGATIVE (NEGATIVE); NITRITE,URINE NEGATIVE (NEGATIVE); OCCULT BLOOD,URINE NEGATIVE (NEGATIVE); PH,URINE 5.5 (5.0-9.0); PROTEIN,URINE 100 mg/dL (NEGATIVE); UROBILINOGEN,URINE 0.2 E.U./dL (0.2-1.0)
[2023-05-05 08:54] LABS: BACTERIA,URINE RARE /HPF (NONE TO FEW); EPITHELIAL CELLS,URINE RARE /LPF; MUCUS,URINE RARE /LPF (NEGATIVE); RBC,URINE 0-5 /HPF (0-5); WBC,URINE 0-5 /HPF (0-5)
[2023-05-05 09:09] VITALS: BP 130/73; PULSE 63
== END 2023-05-05 09:45 | disposition home or self-care (01) ==
LOC: KA.ED 07:50
DX: M54.50 Low back pain, unspecified (principal); I25.2 Old myocardial infarction; M10.9 Gout, unspecified; E66.9 Obesity, unspecified; Z68.36 Body mass index [BMI] 36.0-36.9, adult; Z79.899 Other long term (current) drug therapy; Z79.82 Long term (current) use of aspirin
CPT/HCPCS: 74176; 80053; 81001; 85025; 96361; 96365; 96375; 99284-25; J1885; J2405; J2800; J3490; J7030